=== PATIENT | female | born 1985 | race Caucasian/White ===

== ENCOUNTER 2018-11-29 14:58 | Inpatient (IN) ==
[2018-11-29] MEDS ORDERED: DINOPROSTONE VAG GEL 10 MG SYRINGE VAG ONE ×2 (15:05→15:51)
[2018-11-29] MEDS: LACTATED RINGERS 1,000 ML IV SCH (15:28)
[2018-11-29] MEDS ORDERED: ONDANSETRON 4 MG/2 ML VIAL IV PRN (15:49)
[2018-11-29] MEDS ORDERED: MEPERIDINE 50 MG/1 ML VIAL IV PRN (15:49)
[2018-11-29 16:10] LABS: Basophils % 0.3 % (0.0-0.8); Eosinophils # 0.1 10*3/uL (0.0-0.87); Eosinophils % 1.4 % (0.00-10.9); Hematocrit 39.5 VOL% (35.7-47.0); Hemoglobin 13.4 GM/DL (12.0-16.0); Immature Granulocytes % 0.7 %; Immature Granulocytes Absolute 0.05 #; Lymphocytes # 1.5 10*3/uL (1.4-4.0); Lymphocytes % 21.8 % (21.3-54.2); Mean Corpuscular HGB Conc 33.9 GM/DL (32-36); Mean Corpuscular Hemoglobin 30 PG (27-34); Mean Corpuscular Volume 89.4 FL (87-102); Mean Platelet Volume 10.8 FL (9.6-12.0); Monocytes # 0.6 10*3/uL (0.11-0.8); Monocytes % 8.2 % (1.7-12.7); Neutrophils # 4.8 10*3/uL (1.4-7.4); Neutrophils % 67.6 % (38.7-73.9); Platelet Count 211 T/CUMM (130-400); Red Blood Count 4.42 MC/CUMM (3.8-5.5); Red Cell Distribution Width 13.1 % (9.3-17.3); White Blood Count 7.1 T/CUMM (4-12)
[2018-11-29 16:39] LABS: Bilirubin,Total 0.4 MG/DL (0.2-1.0); Osmolality,Calculated 268.1 MOS/KG (273-304); Total Protein 6.8 G/DL (6.4-8.3); Uric Acid 4.2 MG/DL (2.6-6.0)
[2018-11-29] MEDS: LABETALOL 100 MG TABLET PO SCH (21:15)
[2018-11-29] MEDS ORDERED: BUTORPHANOL 2 MG/ML VIAL ONE (22:35)
[2018-11-29] MEDS: BUTORPHANOL 2 MG/ML VIAL IV PRN (22:40)
[2018-11-29] MEDS ORDERED: SODIUM CHLORIDE 0.9% 100 ML IV ONE (22:55)
[2018-11-29] MEDS ORDERED: AMPICILLIN 2,000 MG VIAL ONE (22:55)
[2018-11-29] MEDS ORDERED: OXYTOCIN/LR 20 UNIT/1,000 ML BAG IV PRN (23:04)
[2018-11-29] MEDS: AMPICILLIN INJ 2,000 MG in SODIUM CHLORIDE 0.9% 100 ML IV SCH (23:10)
[2018-11-30] MEDS: LACTATED RINGERS 1,000 ML IV SCH ×2 (00:30→10:24)
[2018-11-30] MEDS ORDERED: OXYTOCIN/LR 20 UNIT/1,000 ML BAG IV SCH (02:00)
[2018-11-30] MEDS ORDERED: AMPICILLIN INJ 2,000 MG in SODIUM CHLORIDE 0.9% 100 ML IV ONE (02:00)
[2018-11-30] MEDS: BUTORPHANOL 2 MG/ML VIAL IV PRN (04:22)
[2018-11-30] MEDS: AMPICILLIN INJ 2,000 MG in SODIUM CHLORIDE 0.9% 100 ML IV SCH ×2 (05:10→12:08)
[2018-11-30] MEDS ORDERED: hydrOXYzine HCL 25 MG/1 ML VIAL IM PRN (07:50)
[2018-11-30] MEDS ORDERED: FAMOTIDINE 20 MG/2 ML VIAL IV ONE (07:50)
[2018-11-30] MEDS ORDERED: ePHEDrine 50 MG/ML AMP IV PRN (07:50)
[2018-11-30] MEDS ORDERED: LACTATED RINGERS 1,000 ML IV ONE (07:50)
[2018-11-30] MEDS ORDERED: NALOXONE 0.4 MG/ML VIAL IV PRN (07:50)
[2018-11-30] MEDS ORDERED: PROMETHAZINE 25 MG/1 ML VIAL IM ONE (07:50)
[2018-11-30] MEDS ORDERED: CITRIC ACID/SODIUM CITRATE 30 ML UDCUP PO ONE (07:50)
[2018-11-30] MEDS ORDERED: diphenhydrAMINE 50 MG/1 ML VIAL IV PRN ×2 (07:50)
[2018-11-30] MEDS ORDERED: fentaNYL 2 MCG/ROPIV 0.2% EPID 100 ML EPIDURAL SCH (08:00)
[2018-11-30 14:07] LABS: Cord Arterial Blood HCO3 19.1 MMOL/L
[2018-11-30 14:09] LABS: Cord Venous Blood HCO3 22.9 MMOL/L; Cord Venous Blood PCO2 47.6 MMHG; Cord Venous Blood PO2 22.8
[2018-11-30] MEDS: IBUPROFEN 800 MG TABLET PO PRN (17:23)
[2018-12-01] MEDS: IBUPROFEN 800 MG TABLET PO PRN ×2 (04:40→17:21)
[2018-12-01 05:32] LABS: Basophils % 0.4 % (0.0-0.8); Eosinophils # 0.2 10*3/uL (0.0-0.87); Eosinophils % 1.6 % (0.00-10.9); Hematocrit 35.2 VOL% (35.7-47.0); Hemoglobin 11.7 GM/DL (12.0-16.0); Immature Granulocytes % 0.6 %; Immature Granulocytes Absolute 0.06 #; Lymphocytes # 2.3 10*3/uL (1.4-4.0); Lymphocytes % 23.1 % (21.3-54.2); Mean Corpuscular HGB Conc 33.2 GM/DL (32-36); Mean Corpuscular Hemoglobin 30 PG (27-34); Mean Corpuscular Volume 90.5 FL (87-102); Mean Platelet Volume 10.5 FL (9.6-12.0); Monocytes # 0.8 10*3/uL (0.11-0.8); Neutrophils # 6.4 10*3/uL (1.4-7.4); Neutrophils % 66.3 % (38.7-73.9); Platelet Count 169 T/CUMM (130-400); Red Blood Count 3.89 MC/CUMM (3.8-5.5); Red Cell Distribution Width 13.1 % (9.3-17.3); White Blood Count 9.7 T/CUMM (4-12)
[2018-12-01] MEDS: DOCUSATE SODIUM 100 MG CAPSULE PO SCH ×2 (09:10→20:46)
[2018-12-02] MEDS: IBUPROFEN 800 MG TABLET PO PRN (03:38)
[2018-12-02] MEDS: LABETALOL 100 MG TABLET PO SCH (06:40)
[2018-12-02 08:46] VITALS: BP 123/62
[2018-12-02] MEDS: DOCUSATE SODIUM 100 MG CAPSULE PO SCH (09:15)
[2018-12-02] MEDS ORDERED: DIPH/TET/ACEL PERT BOOSTER VACCINE 0.5 ML VIAL IM ONE (10:35)
[2018-12-02] MEDS ORDERED: FUROSEMIDE 40 MG TABLET PO ONE (12:06)
== END 2018-12-01 13:30 | disposition home or self-care (01) | DRG 807 ==
LOC: N.LDOUT 14:58 → N.LD 15:01 → N.OB 11-30 18:11
PROVIDERS: ADMIT Obstetrics & Gynecology; ATTEND Obstetrics & Gynecology